=== PATIENT | female | born 1985 | race African-American/Black ===

== ENCOUNTER 2017-01-20 14:02 | Observation (INO) | payer OTHER ==
[~2017-01-20] VITALS: Ht 167.6 cm; Wt 127.3 kg
[~2017-01-20 14:02] MED LIST: HYDR-971 PO
--- NOTE | 2017-01-20 14:06 | PHYS DOC ---
Past Medical History Past Medical History: No Pertinent History Past Surgical History: Other Additional Past Surgical Histo: adenoidectomy Alcohol Use: Rarely Drug Use: None Adult General HPI HPI Patient is a 31 year old female who presents with chest pain. She states it is sharp nonradiating. She denies any nausea vomiting with it. She does complain of shortness of breath. 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 She denies any history of smoking or any other past medical history. She has a family history of early coronary disease. She does not have a primary care physician and has not seen a doctor for many years. He did have a history of smoking but stopped 10 years ago. Review of Systems Review of Systems Constitutional: Denies fever or chills [] Eyes: Denies change in visual acuity, redness, or eye pain [] HENT: Denies nasal congestion or sore throat [] Respiratory: Denies cough, positive for shortness of breath [] Cardiovascular: No additional information not addressed in HPI [] GI: Denies abdominal pain, nausea, vomiting, bloody stools or diarrhea [] : Denies dysuria or hematuria [] Musculoskeletal: Denies back pain or joint pain [] Integument: Denies rash or skin lesions [] Neurologic: Denies headache, focal weakness or sensory changes [] Endocrine: Denies polyuria or polydipsia [] Current Medications Current Medications Current Medications Medications (Trade) Dose Ordered Sig/Kristen Start Time Stop Time Status Last Admin Dose Admin Fentanyl Citrate (Fentanyl 2ml Vial) 50 mcg PRN Q15MIN PRN 01/20/17 14:15 01/21/17 14:14 01/20/17 15:15 50 MCG Morphine Sulfate 4 mg PRN Q2HR PRN 01/20/17 15:45 01/21/17 15:44 Nitroglycerin (Nitrostat) 0.4 mg PRN Q5MIN PRN 01/20/17 14:15 01/21/17 14:14 01/20/17 14:30 0.4 MG Ondansetron HCl (Zofran) 4 mg PRN Q8HRS PRN 01/20/17 15:45 01/21/17 15:44 Allergies Allergies Allergies Coded Allergies Type Severity Reaction Last Updated Verified No Known Drug Allergies 06/14/16 No Physical Exam Physical Exam Constitutional: Well developed, well nourished, no acute distress, non-toxic appearance. [] HENT: Normocephalic, atraumatic, bilateral external ears normal, oropharynx moist, no oral exudates, nose normal. [] Eyes: PERRLA, EOMI, conjunctiva normal, no discharge. [] Neck: Normal range of motion, no tenderness, supple, no stridor. [] Cardiovascular:Heart rate regular rhythm, no murmur [] Lungs & Thorax: Bilateral breath sounds clear to auscultation [] Abdomen: Bowel sounds normal, soft, no tenderness, no masses, no pulsatile masses. [] Skin: Warm, dry, no erythema, no rash. [] Back: No tenderness, no CVA tenderness. [] Extremities: No tenderness, no cyanosis, no clubbing, ROM intact, no edema. [] Neurologic: Alert and oriented X 3, normal motor function, normal sensory function, no focal deficits noted. [] Psychologic: Affect normal, judgement normal, mood normal. [] Current Patient Data Vital Signs Vital Signs Date Time Temp Pulse Resp B/P Pulse Ox O2 Delivery O2 Flow Rate FiO2 01/20/17 14:30 119 189/78 01/20/17 14:10 98.4 24 97 Room Air 98.4 Lab Values Laboratory Tests Test 01/20/17 14:11 01/20/17 14:14 01/20/17 14:20 01/20/17 14:46 POC Troponin I 0.00ng/ml (<0.08) POC Hemoglobin 13.6g/dL (12-15) POC Hematocrit 40% (36-40) POC Sodium 142mmol/L (135-145) POC Potassium 4.0mmol/L (3.5-5.0) POC Chloride 104mmol/L (98-110) POC Total CO2 25mmol/L (23-32) Anion Gap 17mmol/L (6-14) H 9 (6-14) POC Blood Urea Nitrogen 16mg/dL (8-26) POC Creatinine 0.9mg/dL (0.5-1.4) Glucose Level 95mg/dL (70-99) 107mg/dL (70-99) H POC Ionized Calcium (Rakesh) 1.11mmol/L (1.13-1.32) L White Blood Count 7.7x10^3/uL (4.0-11.0) Red Blood Count 4.36x10^6/uL (3.50-5.40) Hemoglobin 12.5g/dL (12.0-15.5) Hematocrit 38.0% (36.0-47.0) Mean Corpuscular Volume 87fL (79-100) Mean Corpuscular Hemoglobin 29pg (25-35) Mean Corpuscular Hemoglobin Concent 33g/dL (31-37) Red Cell Distribution Width 14.1% (11.5-14.5) Platelet Count 411x10^3/uL (140-400) H Neutrophils (%) (Auto) 59% (31-73) Lymphocytes (%) (Auto) 30% (24-48) Monocytes (%) (Auto) 9% (0-9) Eosinophils (%) (Auto) 1% (0-3) Basophils (%) (Auto) 1% (0-3) Neutrophils # (Auto) 4.5x10^3uL (1.8-7.7) Lymphocytes # (Auto) 2.3x10^3/uL (1.0-4.8) Monocytes # (Auto) 0.7x10^3/uL (0.0-1.1) Eosinophils # (Auto) 0.1x10^3/uL (0.0-0.7) Basophils # (Auto) 0.1x10^3/uL (0.0-0.2) Prothrombin Time 13.4SEC (11.7-14.0) Prothrombin Time INR 1.1 (0.8-1.1) D-Dimer (Shira) < 0.27ug/mlFEU (0.00-0.50) Sodium Level 143mmol/L (136-145) Potassium Level 4.0mmol/L (3.5-5.1) Chloride Level 104mmol/L (98-107) Carbon Dioxide Level 30mmol/L (21-32) Blood Urea Nitrogen 16mg/dL (7-20) Creatinine 0.9mg/dL (0.6-1.0) Estimated GFR (Cockcroft-Gault) 87.3 Calcium Level 8.8mg/dL (8.5-10.1) Magnesium Level 1.9mg/dL (1.8-2.4) Total Bilirubin 0.2mg/dL (0.2-1.0) Direct Bilirubin < 0.1mg/dL (0.0-0.2) Aspartate Amino Transferase (AST) 11U/L (15-37) L Alanine Aminotransferase (ALT) 22U/L (14-59) Alkaline Phosphatase 45U/L (46-116) L Creatine Kinase 191U/L (26-192) Creatine Kinase MB (Mass) 1.5ng/mL (0.0-3.6) Creatine Kinase MB Relative Index 0.8% (0-4) Troponin I Quantitative < 0.017ng/mL (0.000-0.055) MC-Hkq-O-Type Natriuretic Peptide 21pg/mL (0-124) Total Protein 7.7g/dL (6.4-8.2) Albumin 3.6g/dL (3.4-5.0) Lipase 180U/L (73-393) Thyroid Stimulating Hormone (TSH) 1.481uIU/mL (0.358-3.74) Laboratory Tests 01/20/17 14:20 Laboratory Tests 01/20/17 14:14 01/20/17 14:46 EKG EKG EKG shows sinus tach at rate of [address] elevations, no T-wave inversions appreciated, normal axis, QTC 413 ms, as interpreted by me. Radiology/Procedures Radiology/Procedures [facility] [address] [place] [address] IMAGING REPORT Signed PATIENT: SARAY GONZALEZ ACCOUNT: [id number] : 1985 LOCATION: ER AGE: 31 SEX: F EXAM STATUS: REG ER ORD. PHYSICIAN: GLADIS MARRERO MD REASON: chest pain PROCEDURE: PORTABLE CHEST 1V Portable chest, 01/20/2017: History: Chest pain Comparison is made to a study from 05/12/2014. The heart size and pulmonary vascularity are normal. The lungs are clear. There is no evidence of pleural fluid. IMPRESSION: No acute cardiopulmonary abnormality is detected. DICTATED and SIGNED BY: CYDNEY LEACH MD DATE: 01/20/17 [id number] CC: GLADIS MARRERO MD; NO PCP ~ Impressions: Chest pain Obesity Course & Med Decision Making Course & Med Decision Making Pertinent Labs and Imaging studies reviewed. (See chart for details) Chest x-ray, EKG and labs are nonacute. Her pain improved to safely with 2 nitroglycerin. Currently pain-free. D-dimer is negative. She is being admitted to the hospitalist for chest pain evaluation. Aspirin has been given. Dragon Disclaimer Dragon Disclaimer This electronic medical record was generated, in whole or in part, using a voice recognition dictation system. Departure Departure Impression: Primary Impression: Chest pain Disposition: ADMITTED INPATIENT Admitting Physician: Rena Howard Condition: STABLE Referrals: NO PCP (PCP) GLADIS MARRERO MD Jan 20, 2017 14:06
[2017-01-20] MEDS: FENTANYL PF 100 MCG/2 ML VIAL. IV PRN ×2 (14:17→15:15)
[2017-01-20] MEDS: NITROGLYCERIN SUBLINGUAL 0.4 MG BOTTLE OF 25. SL PRN ×2 (14:17→14:30)
--- NOTE | 2017-01-20 14:24 | EKG ---
[facility] [address] [place] [address] Test Date: 2017-01-20 Test Time: 14:15:42 Pat Name: SARAY GONZALEZ Department: Room: Gender: F Emblem Maker: : 1985 Requested By: GLADIS MARRERO Order Number: [id number] Reading MD: Measurements Intervals [place] Rate: 100 P: 36 MD: 152 QRS: 34 QRSD: 86 T: 47 QT: 318 QTc: 413 Interpretive Statements SINUS RHYTHM QRS(T) CONTOUR ABNORMALITY CONSIDER ANTEROSEPTAL MYOCARDIAL DAMAGE POSSIBLY ABNORMAL ECG RI6.01 No previous ECG available for comparison
[2017-01-20 14:32] LABS: BASO # 0.1 x10^3/uL (0.0-0.2); BASO % 1 % (0-3); EOS % 1 % (0-3); HEMOGLOBIN 12.5 g/dL (12.0-15.5); LYMPH # 2.3 x10^3/uL (1.0-4.8); LYMPH % 30 % (24-48); MEAN CORPUSCULAR HEMOGLOBIN 29 pg (25-35); MEAN CORPUSCULAR HGB CONC 33 g/dL (31-37); MEAN CORPUSCULAR VOLUME 87 fL (79-100); MONO % 9 % (0-9); NEUT % 59 % (31-73); PLATELET COUNT 411 x10^3/uL (140-400); RED BLOOD COUNT 4.36 x10^6/uL (3.50-5.40); RED CELL DISTRIBUTION WIDTH 14.1 % (11.5-14.5); WHITE BLOOD COUNT 7.7 x10^3/uL (4.0-11.0)
--- NOTE | 2017-01-20 14:46 | RAD ---
Portable chest, 01/20/2017: History: Chest pain Comparison is made to a study from 05/12/2014. The heart size and pulmonary vascularity are normal. The lungs are clear. There is no evidence of pleural fluid. IMPRESSION: No acute cardiopulmonary abnormality is detected.
[2017-01-20 15:23] LABS: ANION GAP 9 (6-14); BLOOD UREA NITROGEN 16 mg/dL (7-20); CALCIUM 8.8 mg/dL (8.5-10.1); CARBON DIOXIDE 30 mmol/L (21-32); CHLORIDE 104 mmol/L (98-107); CREATININE 0.9 mg/dL (0.6-1.0); GFR 87.3; GLUCOSE 107 mg/dL (70-99); SODIUM 143 mmol/L (136-145)
[2017-01-20 15:24] LABS: INR 1.1 (0.8-1.1); PROTHROMBIN TIME PATIENT 13.4 SEC (11.7-14.0)
[2017-01-20 15:30] LABS: ALBUMIN 3.6 g/dL (3.4-5.0); ALK PHOS 45 U/L (46-116); ALT (SGPT) 22 U/L (14-59); AST (SGOT) 11 U/L (15-37); DIRECT BILIRUBIN < 0.1 mg/dL (0.0-0.2); MAGNESIUM 1.9 mg/dL (1.8-2.4); TOTAL BILIRUBIN 0.2 mg/dL (0.2-1.0); TOTAL PROTEIN 7.7 g/dL (6.4-8.2)
[2017-01-20 15:38] LABS: CKMB INDEX 0.8 % (0-4); CKMB MASS 1.5 ng/mL (0.0-3.6)
[2017-01-20] MEDS ORDERED: ONDANSETRON PF 4 MG/2 ML VIAL. IV PRN ×2 (15:45→17:00)
[2017-01-20] MEDS ORDERED: ASPIRIN 325 MG TABLET PO ONE (16:15)
--- NOTE | 2017-01-20 16:17 | ACF ---
Admission Forms Criteria CHEST PAIN Clinical Indications for Admission to Inpatient Care (Place 'X' for any and all applicable criteria): Admission is indicated for chest pain and ANY ONE of the following(1)(2)(3)(4)(5 ): [ ]I. Angina with acute coronary syndrome (Also use Myocardial Infarction or Angina guideline) [X]II. Hemodynamic instability [ ]III. Angina needing acute intervention as indicated by ALL of the following( 11)(12): [ ]a) Unstable angina is present as indicated by angina that is ANY ONE of the following: [ ]i) New onset [ ]ii) Nocturnal [ ]iii) Prolonged at rest [ ]iv) Progressive [ ]b) Angina warrants acute intervention as indicated by ANY ONE of the following: [ ]i) Recurrent angina (e.g, not responding as previously to treatment) [ ]ii) Angina at rest or with low-level activities despite initial medical therapy [ ]iii) New or presumably new ST-segment depression on ECG [ ]iv) Signs or symptoms of heart failure (eg, dyspnea, pulmonary edema) [ ]v) New or worsening mitral regurgitation [ ]vi) Hemodynamic instability [ ]vii) Dangerous arrhythmia (eg, sustained ventricular tachycardia) [ ]viii) History of percutaneous coronary intervention within 6 months [ ]ix) History of coronary artery bypass graft surgery [ ]x) PRETTY risk score of 2 or greater[A] [ ]xi) History of Diabetes(14) [ ]xii) High-risk cardiac ischemia findings on noninvasive testing (e.g, echocardiogram, treadmill testing, nuclear scan) [ ]xiii) Chronic renal insufficiency (ie, estimated GFR less than 60 mL/min/1.732m) [ ]xiv) Left ventricular ejection fraction less than 40% [ ]IV. Evidence of NV (eg, cardiac biomarkers positive, ST-segment elevation on ECG) also use Myocardial Infarction Criteria Form. [ ]V. Pulmonary edema [ ]. Respiratory distress [ ]VII. Chest pain indicative of serious diagnosis other than coronary artery disease (eg, aortic dissection) [ ]VIII. Contraindications and/or Inappropriate clinical situations for Observational Care in patients with Chest Pain, when ANY ONE of the following is required: [ ]a) Patient with risk factor for pulmonary embolism, acute coronary syndrome and myocardial infarction (18) [ ]b) Patient with Pulmonary embolism require an average LOS of 4.3 days, therefore emergency department observation management is inappropriate 18,23 [ ]c) Painful condition/s in the elderly, have the highest rate of recidivism after emergency department observation management (10.8%) 20,21,22 [ ]d) Elevated cardiac biomarker requires intensive and exhaustive care (19) [ ]IX. General contraindications and/or Inappropriate clinical situations for Observational Care in patients with Chest Pain, when ANY ONE of the following is required: [ ]a) Prediction of prolongation of LOS based on ANY ONE of the following may be considered as a contraindication for observational care 2, 3, 4, 5, 6, 7, 8, 9, 10, 11 [ ]i) Age > 65 yrs. [ ]ii) Patient arriving by ambulance [ ]iii) Patient with high acuity [ ]iv) Patient requiring vital sign monitoring [ ]v) Patient on IV medication [ ]b) Systolic blood pressures 180mmHg 3,12 [ ]c) Patient with altered mental status including delirium and other alteration of consciousness, (3) [ ]d) Patient whose discharge disposition will be to a half-way home or rehabilitation home should not be managed in Emergency Department Observation Unit. CMS rule requires 3 days hospital stay before such placement. 3,13 [ ]e) Patient with failure to thrive due to broad array of etiologies 3,16,17 [ ]f) Inability to ambulate 3,14 Extended stay beyond goal length of stay may be needed for (1)(28): [ ]a) Specific condition diagnosed after evaluation (eg, pulmonary embolism, aortic dissection) [ ]b) Unstable angina [ ]c) Continued suspicion of acute coronary syndrome with inability to complete needed cardiac evaluation (eg, patient clinically unable to undergo stress testing) [ ]d) Myocardial infarction (Contents from ANGINA and CHEST PAIN clinical indications for admission to inpatient care have been integrated in this form) The original [facility] content created by [employer] has been revised. The portions of the content which have been revised are identified through the use of italic text or in bold, and [facility] has neither reviewed nor approved the modified material. All other unmodified content is copyright [employer]. Please see references footnoted in the original [facility] edition 2016 Admission Criteria Met?: Yes TALYA PEARCE Jan 20, 2017 16:17
--- NOTE | 2017-01-20 16:56 | PDOC1 ---
History and Physical Date of Admission Date of Admission 01/20/17 Identification/Chief Complaint Chief Complaint chest pain Problems: Source Source: Chart review, Patient History of Present Illness History of Present Illness HPI HPI Patient is a 31 year old female who presents with chest pain today. 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 had sob, wo N/V or diaphoresis. BP is high in ER >200. pt recently has no fever, chills, cough, sob. quit smoking for 10ys. parents had DM, HTN, but aunt and grandmother had AK. Past Medical History Past Medical History none Past Surgical History Past Surgical History: No pertinent history Family History Family History dm, htn, mi Social History Smoke: Quit ALCOHOL: social Drugs: None Current Problem List Problem List Problems Medical Problems: (1) Chest pain Status: Acute Current Medications Current Medications Current Medications Medications (Trade) Dose Ordered Sig/Kristen Start Time Stop Time Status Last Admin Dose Admin Acetaminophen (Tylenol) 650 mg PRN Q6HRS PRN 01/20/17 17:00 UNV Acetaminophen/ Hydrocodone Bitart (Lortab 5/325) 1 tab PRN Q6HRS PRN 01/20/17 17:00 UNV Aspirin (Yrn Aspirin) 325 mg 1X ONCE 01/20/17 16:15 01/20/17 16:16 DC Fentanyl Citrate (Fentanyl 2ml Vial) 50 mcg PRN Q15MIN PRN 01/20/17 14:15 01/21/17 14:14 01/20/17 15:15 50 MCG Morphine Sulfate 4 mg PRN Q2HR PRN 01/20/17 15:45 01/21/17 15:44 Nitroglycerin (Nitrostat) 0.4 mg PRN Q5MIN PRN 01/20/17 14:15 01/21/17 14:14 01/20/17 14:30 0.4 MG Ondansetron HCl (Zofran) 4 mg PRN Q6HRS PRN 01/20/17 17:00 UNV Allergies Allergies Allergies Coded Allergies Type Severity Reaction Last Updated Verified No Known Drug Allergies 06/14/16 No ROS Review of System CONSTITUTIONAL: No fever or chills EYES: No recent changes SKIN: No rash or itching CARDIOVASCULAR: No chest pain, syncope, palpitations, or edema RESPIRATORY: No SOB or cough GASTROINTESTINAL: No nausea, vomiting or abdominal pain NEUROLOGICAL: No headaches or weakness ENDOCRINE: No cold or heat intolerance GENITOURINARY: No urgency or frequency of urination MUSCULOSKELETAL: No back pain or joint pain LYMPHATICS: No enlarged lymph nodes PSYCHIATRIC: No anxiety or depression Physical Exam Physical Exam GEN.: No apparent distress. Alert and oriented. HEENT: Head is normocephalic, atraumatic NECK: Supple. LUNGS: Clear to auscultation. HEART: RRR, S1, S2 present. Peripheral pulses intact ABDOMEN: Soft, nontender. Positive bowel sounds. EXTREMITIES: Without any cyanosis. NEUROLOGIC: Normal speech, normal tone PSYCHIATRIC: Normal affect, normal mood. SKIN: No ulcerations Vitals Vitals Vital Signs Date Time Temp Pulse Resp B/P Pulse Ox O2 Delivery O2 Flow Rate FiO2 01/20/17 14:30 119 189/78 01/20/17 14:10 98.4 24 97 Room Air 98.4 Labs Labs Laboratory Tests Test 01/20/17 14:11 01/20/17 14:14 01/20/17 14:20 01/20/17 14:46 Bedside Troponin I 0.00ng/ml (<0.08) Bedside Hemoglobin 13.6g/dL (12-15) Bedside Hematocrit 40% (36-40) Bedside Sodium 142mmol/L (135-145) Bedside Potassium 4.0mmol/L (3.5-5.0) Bedside Chloride 104mmol/L (98-110) Bedside Total CO2 25mmol/L (23-32) Anion Gap 17mmol/L (6-14) 9 (6-14) Bedside Blood Urea Nitrogen 16mg/dL (8-26) Bedside Creatinine 0.9mg/dL (0.5-1.4) Glucose Level 95mg/dL (70-99) 107mg/dL (70-99) Bedside Ionized Calcium (Rakesh) 1.11mmol/L (1.13-1.32) White Blood Count 7.7x10^3/uL (4.0-11.0) Red Blood Count 4.36x10^6/uL (3.50-5.40) Hemoglobin 12.5g/dL (12.0-15.5) Hematocrit 38.0% (36.0-47.0) Mean Corpuscular Volume 87fL (79-100) Mean Corpuscular Hemoglobin 29pg (25-35) Mean Corpuscular Hemoglobin Concent 33g/dL (31-37) Red Cell Distribution Width 14.1% (11.5-14.5) Platelet Count 411x10^3/uL (140-400) Neutrophils (%) (Auto) 59% (31-73) Lymphocytes (%) (Auto) 30% (24-48) Monocytes (%) (Auto) 9% (0-9) Eosinophils (%) (Auto) 1% (0-3) Basophils (%) (Auto) 1% (0-3) Neutrophils # (Auto) 4.5x10^3uL (1.8-7.7) Lymphocytes # (Auto) 2.3x10^3/uL (1.0-4.8) Monocytes # (Auto) 0.7x10^3/uL (0.0-1.1) Eosinophils # (Auto) 0.1x10^3/uL (0.0-0.7) Basophils # (Auto) 0.1x10^3/uL (0.0-0.2) Prothrombin Time 13.4SEC (11.7-14.0) Prothromb Time International Ratio 1.1 (0.8-1.1) D-Dimer (Shira) < 0.27ug/mlFEU (0.00-0.50) Sodium Level 143mmol/L (136-145) Potassium Level 4.0mmol/L (3.5-5.1) Chloride Level 104mmol/L (98-107) Carbon Dioxide Level 30mmol/L (21-32) Blood Urea Nitrogen 16mg/dL (7-20) Creatinine 0.9mg/dL (0.6-1.0) Estimated GFR (Cockcroft-Gault) 87.3 Calcium Level 8.8mg/dL (8.5-10.1) Magnesium Level 1.9mg/dL (1.8-2.4) Total Bilirubin 0.2mg/dL (0.2-1.0) Direct Bilirubin < 0.1mg/dL (0.0-0.2) Aspartate Amino Transf (AST/SGOT) 11U/L (15-37) Alanine Aminotransferase (ALT/SGPT) 22U/L (14-59) Alkaline Phosphatase 45U/L (46-116) Creatine Kinase 191U/L (26-192) Creatine Kinase MB (Mass) 1.5ng/mL (0.0-3.6) Creatine Kinase MB Relative Index 0.8% (0-4) Troponin I Quantitative < 0.017ng/mL (0.000-0.055) QP-Lif-R-Type Natriuretic Peptide 21pg/mL (0-124) Total Protein 7.7g/dL (6.4-8.2) Albumin 3.6g/dL (3.4-5.0) Lipase 180U/L (73-393) Thyroid Stimulating Hormone (TSH) 1.481uIU/mL (0.358-3.74) Laboratory Tests Test 01/20/17 14:11 01/20/17 14:14 01/20/17 14:20 01/20/17 14:46 Bedside Troponin I 0.00ng/ml (<0.08) Bedside Hemoglobin 13.6g/dL (12-15) Bedside Hematocrit 40% (36-40) Bedside Sodium 142mmol/L (135-145) Bedside Potassium 4.0mmol/L (3.5-5.0) Bedside Chloride 104mmol/L (98-110) Bedside Total CO2 25mmol/L (23-32) Anion Gap 17mmol/L (6-14) 9 (6-14) Bedside Blood Urea Nitrogen 16mg/dL (8-26) Bedside Creatinine 0.9mg/dL (0.5-1.4) Glucose Level 95mg/dL (70-99) 107mg/dL (70-99) Bedside Ionized Calcium (Rakesh) 1.11mmol/L (1.13-1.32) White Blood Count 7.7x10^3/uL (4.0-11.0) Red Blood Count 4.36x10^6/uL (3.50-5.40) Hemoglobin 12.5g/dL (12.0-15.5) Hematocrit 38.0% (36.0-47.0) Mean Corpuscular Volume 87fL (79-100) Mean Corpuscular Hemoglobin 29pg (25-35) Mean Corpuscular Hemoglobin Concent 33g/dL (31-37) Red Cell Distribution Width 14.1% (11.5-14.5) Platelet Count 411x10^3/uL (140-400) Neutrophils (%) (Auto) 59% (31-73) Lymphocytes (%) (Auto) 30% (24-48) Monocytes (%) (Auto) 9% (0-9) Eosinophils (%) (Auto) 1% (0-3) Basophils (%) (Auto) 1% (0-3) Neutrophils # (Auto) 4.5x10^3uL (1.8-7.7) Lymphocytes # (Auto) 2.3x10^3/uL (1.0-4.8) Monocytes # (Auto) 0.7x10^3/uL (0.0-1.1) Eosinophils # (Auto) 0.1x10^3/uL (0.0-0.7) Basophils # (Auto) 0.1x10^3/uL (0.0-0.2) Prothrombin Time 13.4SEC (11.7-14.0) Prothromb Time International Ratio 1.1 (0.8-1.1) D-Dimer (Shira) < 0.27ug/mlFEU (0.00-0.50) Sodium Level 143mmol/L (136-145) Potassium Level 4.0mmol/L (3.5-5.1) Chloride Level 104mmol/L (98-107) Carbon Dioxide Level 30mmol/L (21-32) Blood Urea Nitrogen 16mg/dL (7-20) Creatinine 0.9mg/dL (0.6-1.0) Estimated GFR (Cockcroft-Gault) 87.3 Calcium Level 8.8mg/dL (8.5-10.1) Magnesium Level 1.9mg/dL (1.8-2.4) Total Bilirubin 0.2mg/dL (0.2-1.0) Direct Bilirubin < 0.1mg/dL (0.0-0.2) Aspartate Amino Transf (AST/SGOT) 11U/L (15-37) Alanine Aminotransferase (ALT/SGPT) 22U/L (14-59) Alkaline Phosphatase 45U/L (46-116) Creatine Kinase 191U/L (26-192) Creatine Kinase MB (Mass) 1.5ng/mL (0.0-3.6) Creatine Kinase MB Relative Index 0.8% (0-4) Troponin I Quantitative < 0.017ng/mL (0.000-0.055) UI-Zvy-T-Type Natriuretic Peptide 21pg/mL (0-124) Total Protein 7.7g/dL (6.4-8.2) Albumin 3.6g/dL (3.4-5.0) Lipase 180U/L (73-393) Thyroid Stimulating Hormone (TSH) 1.481uIU/mL (0.358-3.74) VTE Prophylaxis Ordered VTE Prophylaxis Devices: Yes VTE Pharmacological Prophylaxi: Yes Assessment/Plan Assessment/Plan 1. chest pain, could 2/2 HTN, need to rule out AK 2. HTN new onset 3. obesity 4. previous smoker plan: 1. fu with card 2. check echo, tsh, lipid panel, Cycle CE 3. EKG cannot opened, as per ERP, it is ok 4. add lisinopirl 20mg daily for now asa x1 in ER. dvt ppx JORDIN BECK MD Jan 20, 2017 16:56
[2017-01-20] MEDS ORDERED: ACETAMINOPHEN 325 MG TABLET. PO PRN (17:00)
[2017-01-20] MEDS ORDERED: hydrALAZINE 20 MG/ML VIAL. IVP PRN (17:00)
[2017-01-20] MEDS ORDERED: ENOXAPARIN 40 MG/0.4 ML DISP.SYRIN. SQ SCH (17:00)
[2017-01-20 17:17] LABS: BILIRUBIN,URINE NEGATIVE (NEG); GLUCOSE,URINE NEGATIVE (NEG); NITRITE,URINE NEGATIVE (NEG); PROTEIN,URINE NEGATIVE (NEG-TRACE); UROBILINOGEN,URINE 0.2 mg/dL (0.2 mg/dL)
[2017-01-20 17:21] LABS: BARBITURATES NEG (NEG); BENZODIAZEPINES NEG (NEG); CANNABINOIDS NEG (NEG); COCAINE NEG (NEG); METHADONE NEG (NEG); OPIATES NEG (NEG); PHENCYCLIDINE NEG (NEG)
[2017-01-20 17:25] LABS: ETHANOL, URINE NEG (NEG)
[2017-01-20 17:30] LABS: BACTERIA,URINE MODERATE /HPF (0-FEW); RBC,URINE OCC /HPF (0-2); SQUAMOUS EPITHELIAL CELL,UR MOD /LPF; WBC,URINE OCC /HPF (0-4)
[2017-01-20] MEDS: LISINOPRIL 10 MG TABLET PO SCH (18:26)
[2017-01-20] MEDS: HYDROCODONE/APAP 5/325MG TABLET. PO PRN (18:26)
[2017-01-20 19:00] VITALS: BP 114/84
--- NOTE | 2017-01-20 19:28 | PDOC2 ---
CARDIOLOGY CONSULT NOTE CHEIF COMPLAINT: Chest pain Problems: HPI: Patient is a pleasant 31-year-old woman without any significant past medical history who presents to the hospital in the setting of sudden onset of chest pain. She usually works as a transporter through [employer] and earlier today after transporting somebody she felt some sharp left-sided pains which caused her some lightheadedness and also some dyspnea this prompted evaluation in the emergency department. Her evaluation in the ER revealed severely elevated blood pressures and whether this was the cause or secondary to her pain it is unclear. Ultimately, nitroglycerin and fentanyl resolved her pain. At this present time she reports pleuritic type pain with difficulty taking a deep breath. Otherwise she denies any headaches. She's never had any prior cardiovascular disease. She is an active individual. PMHX: No significant past medical history. SOCHX: Remote history of tobacco use. Denies any alcohol or illicit drug use. FAMHX: Note for early arthroscopic heart disease in her family but no sudden cardiac . CURRENT MEDS: Current Medications Medications (Trade) Dose Ordered Sig/Kristen Start Time Stop Time Status Last Admin Dose Admin Acetaminophen (Tylenol) 650 mg PRN Q6HRS PRN 01/20/17 17:00 Acetaminophen/ Hydrocodone Bitart (Lortab 5/325) 1 tab PRN Q6HRS PRN 01/20/17 17:00 01/20/17 18:26 1 TAB Aspirin (Yrn Aspirin) 325 mg 1X ONCE 01/20/17 16:15 01/20/17 16:16 DC 01/20/17 17:21 325 MG Enoxaparin Sodium (Lovenox 40mg Syringe) 40 mg Q24H 01/20/17 17:00 01/20/17 18:25 40 MG Fentanyl Citrate (Fentanyl 2ml Vial) 50 mcg PRN Q15MIN PRN 01/20/17 14:15 01/21/17 14:14 01/20/17 15:15 50 MCG Hydralazine HCl (Apresoline) 10 mg PRN Q6HRS PRN 01/20/17 17:00 Lisinopril (Prinivil) 20 mg DAILY 01/20/17 17:00 01/20/17 18:26 20 MG Morphine Sulfate 4 mg PRN Q2HR PRN 01/20/17 15:45 01/21/17 15:44 Nitroglycerin (Nitrostat) 0.4 mg PRN Q5MIN PRN 01/20/17 14:15 01/21/17 14:14 01/20/17 14:30 0.4 MG Ondansetron HCl (Zofran) 4 mg PRN Q6HRS PRN 01/20/17 17:00 ALLERGIES: Allergies Coded Allergies Type Severity Reaction Last Updated Verified No Known Drug Allergies 06/14/16 No ROS: Negative for 10 out of 14 systems reviewed unless otherwise mentioned above in history of present illness. PHYSICAL EXAM: Vital Signs: Vital Signs Date Time Temp Pulse Resp B/P Pulse Ox O2 Delivery O2 Flow Rate FiO2 01/20/17 18:48 Room Air 01/20/17 18:26 74 135/67 01/20/17 18:26 2.0 01/20/17 17:03 18 100 01/20/17 14:10 98.4 98.4 Physical Exam: The patient appeared well nourished and normally developed. Head exam is unremarkable. No scleral icterus or corneal arcus noted. Neck is without jugular venous distension, thyromegaly, or carotid bruits. Carotid upstrokes are brisk bilaterally. Lungs are clear to auscultation and percussion. Cardiac exam reveals the PMI to be normally sized and situated. Rhythm is regular. First and second heart sounds normal. No murmurs, rubs or gallops. Abdominal exam reveals normal bowel sounds, no masses, no organomegaly and no aortic enlargement. Extremities are nonedematous and both femoral and pedal pulses are normal. Msk: No traumua Neuro: No focal deficits DIAGNOSTIC TESTING: Cardiac enzymes negative. Chest x-ray unremarkable. Urine toxicology negative. EKG unremarkable. Lab Laboratory Tests Test 01/20/17 14:11 01/20/17 14:14 01/20/17 14:20 01/20/17 14:46 Bedside Troponin I 0.00ng/ml (<0.08) Bedside Hemoglobin 13.6g/dL (12-15) Bedside Hematocrit 40% (36-40) Bedside Sodium 142mmol/L (135-145) Bedside Potassium 4.0mmol/L (3.5-5.0) Bedside Chloride 104mmol/L (98-110) Bedside Total CO2 25mmol/L (23-32) Anion Gap 17mmol/L (6-14) H 9 (6-14) Bedside Blood Urea Nitrogen 16mg/dL (8-26) Bedside Creatinine 0.9mg/dL (0.5-1.4) Glucose Level 95mg/dL (70-99) 107mg/dL (70-99) H Bedside Ionized Calcium (Rakesh) 1.11mmol/L (1.13-1.32) L White Blood Count 7.7x10^3/uL (4.0-11.0) Red Blood Count 4.36x10^6/uL (3.50-5.40) Hemoglobin 12.5g/dL (12.0-15.5) Hematocrit 38.0% (36.0-47.0) Mean Corpuscular Volume 87fL (79-100) Mean Corpuscular Hemoglobin 29pg (25-35) Mean Corpuscular Hemoglobin Concent 33g/dL (31-37) Red Cell Distribution Width 14.1% (11.5-14.5) Platelet Count 411x10^3/uL (140-400) H Neutrophils (%) (Auto) 59% (31-73) Lymphocytes (%) (Auto) 30% (24-48) Monocytes (%) (Auto) 9% (0-9) Eosinophils (%) (Auto) 1% (0-3) Basophils (%) (Auto) 1% (0-3) Neutrophils # (Auto) 4.5x10^3uL (1.8-7.7) Lymphocytes # (Auto) 2.3x10^3/uL (1.0-4.8) Monocytes # (Auto) 0.7x10^3/uL (0.0-1.1) Eosinophils # (Auto) 0.1x10^3/uL (0.0-0.7) Basophils # (Auto) 0.1x10^3/uL (0.0-0.2) Prothrombin Time 13.4SEC (11.7-14.0) Prothromb Time International Ratio 1.1 (0.8-1.1) D-Dimer (Shira) < 0.27ug/mlFEU (0.00-0.50) Sodium Level 143mmol/L (136-145) Potassium Level 4.0mmol/L (3.5-5.1) Chloride Level 104mmol/L (98-107) Carbon Dioxide Level 30mmol/L (21-32) Blood Urea Nitrogen 16mg/dL (7-20) Creatinine 0.9mg/dL (0.6-1.0) Estimated GFR (Cockcroft-Gault) 87.3 Calcium Level 8.8mg/dL (8.5-10.1) Total Bilirubin 0.2mg/dL (0.2-1.0) Direct Bilirubin < 0.1mg/dL (0.0-0.2) Aspartate Amino Transf (AST/SGOT) 11U/L (15-37) L Alkaline Phosphatase 45U/L (46-116) L Creatine Kinase 191U/L (26-192) Creatine Kinase MB (Mass) 1.5ng/mL (0.0-3.6) Creatine Kinase MB Relative Index 0.8% (0-4) Total Protein 7.7g/dL (6.4-8.2) Albumin 3.6g/dL (3.4-5.0) Lipase 180U/L (73-393) Thyroid Stimulating Hormone (TSH) 1.481uIU/mL (0.358-3.74) Test 01/20/17 17:00 Urine Collection Type Unknown Urine Color Yellow Urine Clarity Clear Urine pH 7.0 Urine Specific [place] 1.025 Urine Protein Negativemg/dL (NEG-TRACE) Urine Glucose (UA) Negativemg/dL (NEG) Urine Ketones (Stick) Negativemg/dL (NEG) Urine Blood Negative (NEG) Urine Nitrite Negative (NEG) Urine Bilirubin Negative (NEG) Urine Urobilinogen Dipstick 0.2mg/dL (0.2 mg/dL) Urine Leukocyte Esterase Negative (NEG) Urine RBC Occ/HPF (0-2) Urine WBC Occ/HPF (0-4) Urine Squamous Epithelial Cells Mod/LPF Urine Bacteria Moderate/HPF (0-FEW) Urine Mucus Mod/LPF Urine Opiates Screen Neg (NEG) Urine Methadone Screen Neg (NEG) Urine Barbiturates Neg (NEG) Urine Phencyclidine Screen Neg (NEG) Urine Amphetamine/Methamphetamine Neg (NEG) Urine Benzodiazepines Screen Neg (NEG) Urine Cocaine Screen Neg (NEG) Urine Cannabinoids Screen Neg (NEG) Urine Ethyl Alcohol Neg (NEG) ASSESSMENT: 1. Pleuritic chest pain, etiology unclear. Given the sudden nature it does not appear to be cardiac. She has muscular skeletal and pleuritic components to this. No obvious anginal symptoms prior to presentation. Her d-dimer is negative making pulmonary embolus rare. 2. Malignant HTN PLAN: -Check echo in a.m. -Will likely plan for treadmill MPI tomorrow. -Agree with lisinopril for BP -Toradol prn for pain control. -Will f/u in a.m. SCOTTY JORDAN MD Jan 20, 2017 19:28
[2017-01-20] MEDS: MORPHINE SULFATE 4 MG/ML DISP.SYRIN. IV PRN (21:53)
[2017-01-20 23:00] VITALS: BP 112/52
[2017-01-21] MEDS: HYDROCODONE/APAP 5/325MG TABLET. PO PRN (02:43)
[2017-01-21 03:00] VITALS: BP 128/80
[2017-01-21 03:49] LABS: BASO % 0 % (0-3); EOS % 1 % (0-3); HEMATOCRIT 34.1 % (36.0-47.0); HEMOGLOBIN 11.1 g/dL (12.0-15.5); LYMPH # 1.8 x10^3/uL (1.0-4.8); LYMPH % 35 % (24-48); MEAN CORPUSCULAR HEMOGLOBIN 29 pg (25-35); MEAN CORPUSCULAR HGB CONC 33 g/dL (31-37); MEAN CORPUSCULAR VOLUME 87 fL (79-100); MONO % 12 % (0-9); NEUT % 51 % (31-73); PLATELET COUNT 208 x10^3/uL (140-400); RED BLOOD COUNT 3.92 x10^6/uL (3.50-5.40); RED CELL DISTRIBUTION WIDTH 13.9 % (11.5-14.5); WHITE BLOOD COUNT 5.2 x10^3/uL (4.0-11.0)
[2017-01-21 04:04] LABS: CALCIUM 8.5 mg/dL (8.5-10.1); CREATININE 0.8 mg/dL (0.6-1.0); POTASSIUM 3.9 mmol/L (3.5-5.1)
[2017-01-21 04:09] LABS: CHOLESTEROL/HDL RATIO 3.1
[2017-01-21 07:00] VITALS: BP 121/68
[2017-01-21] MEDS: MORPHINE SULFATE 4 MG/ML DISP.SYRIN. IV PRN (07:56)
[2017-01-21] MEDS ORDERED: LISINOPRIL 10 MG TABLET PO SCH (09:00)
[2017-01-21] MEDS: LISINOPRIL 10 MG TABLET PO SCH (10:50)
--- NOTE | 2017-01-21 11:01 | CARD ---
APPROVED REPORT EXAM: Two-dimensional and M-mode echocardiogram with Doppler and color Doppler. Other Information Quality : Average Rhythm : NSR INDICATION Chest Pain 2D DIMENSIONS RVDd2.8 (2.9-3.5cm)Left Atrium(2D)4.0 (1.6-4.0cm) IVSd0.9 (0.7-1.1cm)Aortic Root(2D)2.3 (2.0-3.7cm) LVDd5.1 (3.9-5.9cm)LVOT Diameter2.1 (1.8-2.4cm) PWd0.9 (0.7-1.1cm)LVDs3.2 (2.5-4.0cm) FS (%) 33.4 %SV83.8 ml LVEF(%)63.1 (>50%) Aortic Valve AoV Peak Tim[place]o.130.6cm/sAoV VTI29.1cm AO Peak GR.6.8mmHgLVOT Peak [place]o.97.4cm/s LVOT VTI 22.69cmAO Mean GR.4mmHg NOY (VMAX)2.20py1FKJ (VTI)2.79cm2 Mitral Valve MV E Eikycfav448.4cm/sMV DECEL JNQY192kk MV A Ovwwlcnf75.0cm/sMV E Mean Gr.2mmHg MV RVR65gqB/A Ratio3.4 MV A Dxrgvmxh830esTED (PHT)4.26cm2 TDI E/Lateral E'5.4E/Medial E'9.1 Pulmonary Valve PV Peak Djwmggwc119.1cm/sPV Peak Grad.4mmHg RVOT VTI20.4cm Tricuspid Valve TR P. Dghflnwb438du/sRAP FMWSPDCS9wwXr TR Peak Gr.53viQuFPES08wiGc Pulmonary Vein S1 Xdqjpbrw60.8cm/sD2 Qtsbrdeb90.3cm/s LEFT VENTRICLE The left ventricle is normal size. There is normal left ventricular wall thickness. Left ventricle sy stolic function is normal. The Ejection Fraction is 60-65%. There is normal LV segmental wall motion. The left ventricular diastolic function and filling is normal for age. RIGHT VENTRICLE The right ventricle is normal size. The right ventricular systolic function is normal. ATRIA The left atrium size is normal. The right atrium size is normal. The interatrial septum is intact wit h no evidence for an atrial septal defect or patent foramen ovale as noted on 2-D or Doppler imaging. AORTIC VALVE The aortic valve is normal in structure and function. The aortic valve is trileaflet. Doppler and Col or Flow revealed no significant aortic regurgitation. There is no significant aortic valvular stenosi s. MITRAL VALVE The mitral valve is normal in structure and function. There is no mitral valve stenosis. Doppler and Color Flow revealed trace mitral regurgitation. TRICUSPID VALVE The tricuspid valve is normal in structure and function. Doppler and Color Flow revealed trace to mil d tricuspid regurgitation. The PA pressure was estimated at 26 mmHg. There is no tricuspid valve sten osis. PULMONIC VALVE The pulmonic valve is not well visualized. Doppler and Color Flow revealed no pulmonic valvular regur gitation. There is no pulmonic valvular stenosis. GREAT VESSELS The aortic root is normal in size. Normal pulmonary venous flow (Doppler). The IVC is normal in size and collapses >50% with inspiration. PERICARDIAL EFFUSION There is no evidence of significant pericardial effusion. Critical Notification Critical Value: No <Conclusion> Left ventricle systolic function is normal. The Ejection Fraction is 60-65%. There is normal LV segmental wall motion.
--- NOTE | 2017-01-21 11:03 | PDOC ---
SAHILSHARLENE Raquel VEGETABLE PICKER 01/21/17 1103: CARDIO Progress Notes Date and Time Date of Service 01/21/2017 Time of Evaluation 1055 Subjective Subjective: Other (continued intermittent left upper chest pain) Vitals Vitals Vital Signs Date Time Temp Pulse Resp B/P Pulse Ox O2 Delivery O2 Flow Rate FiO2 01/21/17 10:50 64 105/41 01/21/17 08:26 20 100 Room Air 01/21/17 07:56 2.0 01/21/17 07:00 99.1 99.1 Weight Weight [ ] Input and Output Intake and Output Intake and Output 01/21/17 07:00 Intake Total 600 ml Balance 600 ml Intake Oral 600 ml # Voids 2 Laboratory Labs Laboratory Tests Test 01/20/17 14:11 01/20/17 14:14 01/20/17 14:20 01/20/17 14:46 Bedside Troponin I 0.00ng/ml (<0.08) Bedside Hemoglobin 13.6g/dL (12-15) Bedside Hematocrit 40% (36-40) Bedside Sodium 142mmol/L (135-145) Bedside Potassium 4.0mmol/L (3.5-5.0) Bedside Chloride 104mmol/L (98-110) Bedside Total CO2 25mmol/L (23-32) Anion Gap 17mmol/L (6-14) 9 (6-14) Bedside Blood Urea Nitrogen 16mg/dL (8-26) Bedside Creatinine 0.9mg/dL (0.5-1.4) Glucose Level 95mg/dL (70-99) 107mg/dL (70-99) Bedside Ionized Calcium (Rakesh) 1.11mmol/L (1.13-1.32) White Blood Count 7.7x10^3/uL (4.0-11.0) Red Blood Count 4.36x10^6/uL (3.50-5.40) Hemoglobin 12.5g/dL (12.0-15.5) Hematocrit 38.0% (36.0-47.0) Mean Corpuscular Volume 87fL (79-100) Mean Corpuscular Hemoglobin 29pg (25-35) Mean Corpuscular Hemoglobin Concent 33g/dL (31-37) Red Cell Distribution Width 14.1% (11.5-14.5) Platelet Count 411x10^3/uL (140-400) Neutrophils (%) (Auto) 59% (31-73) Lymphocytes (%) (Auto) 30% (24-48) Monocytes (%) (Auto) 9% (0-9) Eosinophils (%) (Auto) 1% (0-3) Basophils (%) (Auto) 1% (0-3) Neutrophils # (Auto) 4.5x10^3uL (1.8-7.7) Lymphocytes # (Auto) 2.3x10^3/uL (1.0-4.8) Monocytes # (Auto) 0.7x10^3/uL (0.0-1.1) Eosinophils # (Auto) 0.1x10^3/uL (0.0-0.7) Basophils # (Auto) 0.1x10^3/uL (0.0-0.2) Prothrombin Time 13.4SEC (11.7-14.0) Prothromb Time International Ratio 1.1 (0.8-1.1) D-Dimer (Shira) < 0.27ug/mlFEU (0.00-0.50) Sodium Level 143mmol/L (136-145) Potassium Level 4.0mmol/L (3.5-5.1) Chloride Level 104mmol/L (98-107) Carbon Dioxide Level 30mmol/L (21-32) Blood Urea Nitrogen 16mg/dL (7-20) Creatinine 0.9mg/dL (0.6-1.0) Estimated GFR (Cockcroft-Gault) 87.3 Calcium Level 8.8mg/dL (8.5-10.1) Magnesium Level 1.9mg/dL (1.8-2.4) Total Bilirubin 0.2mg/dL (0.2-1.0) Direct Bilirubin < 0.1mg/dL (0.0-0.2) Aspartate Amino Transf (AST/SGOT) 11U/L (15-37) Alanine Aminotransferase (ALT/SGPT) 22U/L (14-59) Alkaline Phosphatase 45U/L (46-116) Creatine Kinase 191U/L (26-192) Creatine Kinase MB (Mass) 1.5ng/mL (0.0-3.6) Creatine Kinase MB Relative Index 0.8% (0-4) Troponin I Quantitative < 0.017ng/mL (0.000-0.055) NR-Igi-D-Type Natriuretic Peptide 21pg/mL (0-124) Total Protein 7.7g/dL (6.4-8.2) Albumin 3.6g/dL (3.4-5.0) Lipase 180U/L (73-393) Thyroid Stimulating Hormone (TSH) 1.481uIU/mL (0.358-3.74) Test 01/20/17 17:00 01/20/17 22:00 01/21/17 03:22 Urine Collection Type Unknown Urine Color Yellow Urine Clarity Clear Urine pH 7.0 Urine Specific [place] 1.025 Urine Protein Negativemg/dL (NEG-TRACE) Urine Glucose (UA) Negativemg/dL (NEG) Urine Ketones (Stick) Negativemg/dL (NEG) Urine Blood Negative (NEG) Urine Nitrite Negative (NEG) Urine Bilirubin Negative (NEG) Urine Urobilinogen Dipstick 0.2mg/dL (0.2 mg/dL) Urine Leukocyte Esterase Negative (NEG) Urine RBC Occ/HPF (0-2) Urine WBC Occ/HPF (0-4) Urine Squamous Epithelial Cells Mod/LPF Urine Bacteria Moderate/HPF (0-FEW) Urine Mucus Mod/LPF Urine Opiates Screen Neg (NEG) Urine Methadone Screen Neg (NEG) Urine Barbiturates Neg (NEG) Urine Phencyclidine Screen Neg (NEG) Urine Amphetamine/Methamphetamine Neg (NEG) Urine Benzodiazepines Screen Neg (NEG) Urine Cocaine Screen Neg (NEG) Urine Cannabinoids Screen Neg (NEG) Urine Ethyl Alcohol Neg (NEG) Troponin I Quantitative < 0.017ng/mL (0.000-0.055) < 0.017ng/mL (0.000-0.055) White Blood Count 5.2x10^3/uL (4.0-11.0) Red Blood Count 3.92x10^6/uL (3.50-5.40) Hemoglobin 11.1g/dL (12.0-15.5) Hematocrit 34.1% (36.0-47.0) Mean Corpuscular Volume 87fL (79-100) Mean Corpuscular Hemoglobin 29pg (25-35) Mean Corpuscular Hemoglobin Concent 33g/dL (31-37) Red Cell Distribution Width 13.9% (11.5-14.5) Platelet Count 208x10^3/uL (140-400) Neutrophils (%) (Auto) 51% (31-73) Lymphocytes (%) (Auto) 35% (24-48) Monocytes (%) (Auto) 12% (0-9) Eosinophils (%) (Auto) 1% (0-3) Basophils (%) (Auto) 0% (0-3) Neutrophils # (Auto) 2.6x10^3uL (1.8-7.7) Lymphocytes # (Auto) 1.8x10^3/uL (1.0-4.8) Monocytes # (Auto) 0.6x10^3/uL (0.0-1.1) Eosinophils # (Auto) 0.1x10^3/uL (0.0-0.7) Basophils # (Auto) 0.0x10^3/uL (0.0-0.2) Sodium Level 141mmol/L (136-145) Potassium Level 3.9mmol/L (3.5-5.1) Chloride Level 107mmol/L (98-107) Carbon Dioxide Level 27mmol/L (21-32) Anion Gap 7 (6-14) Blood Urea Nitrogen 14mg/dL (7-20) Creatinine 0.8mg/dL (0.6-1.0) Estimated GFR (Cockcroft-Gault) 100.0 Glucose Level 99mg/dL (70-99) Calcium Level 8.5mg/dL (8.5-10.1) Triglycerides Level 55mg/dL (0-150) Cholesterol Level 118mg/dL (0-200) LDL Cholesterol, Calculated 69mg/dL (0-100) VLDL Cholesterol, Calculated 11mg/dL (0-40) HDL Cholesterol 38mg/dL (40-60) Cholesterol/HDL Ratio 3.1 Physical Exam HEENT: Neck Supple W Full Motion Chest: Symmetric LUNGS: Clear to Auscultation Heart: S1S2, RRR, no murmurs Extremities: No Edema Neurology: alert, oriented, follow commands Assessment Assessment 1. malignant HTN now controlled with medications echo pending to evaluate LVEF and assess for WMA 2. persistent chest pain pleuritic serial troponin levels not consistent with AMI TSH normal; LDLs = 69 and no indication to start statin therapy exercise treadmill today If echo and treadmill without significant findings and BP remains controlled - possible discharge later today SCOTTY JORDAN MD 01/21/17 1534: CARDIO Progress Notes Plan Plan Patient seen and examined. Agree with above nurse practitioner note. Continues to have pleuritic chest pain. Echocardiogram and treadmill EKG are unremarkable. Noncardiac pathology at this time. Supportive care with pain control and blood pressure is better controlled on current regimen. Thank you for this consultation and we will follow along peripherally. SHARLENE BAXTER APRN Jan 21, 2017 11:03 SCOTTY JORDAN MD Jan 21, 2017 15:34
[2017-01-21 11:20] VITALS: BP 105/41
[2017-01-21] MEDS ORDERED: ENOXAPARIN 40 MG/0.4 ML DISP.SYRIN. SQ SCH (12:00)
[2017-01-21 15:17] VITALS: BP 103/49
--- NOTE | 2017-01-21 15:34 | RAD ---
APPROVED REPORT Cardiovascular exercise stress testing was performed with EKG only. Patient's initial blood pressure was 131/74 with a heart rate of 72. Resting EKG revealed normal sinus rhythm without any significant ischemic findings. Patient exercised on a Adi protocol to stage II and achieved 7 metabolic equivalents. Stress EKG did not reveal any significant ischemic findings. Appropriate blood pressure rise with str ess. Overall, lower exercise capacity but no obvious ischemia at the level of stress achieved.
[2017-01-21] MEDS ORDERED: AMLO2.5T2 PO (15:39)
== END 2017-01-21 17:45 | disposition home or self-care (01) ==
LOC: ER 14:02 → 5 NORTH 15:30
PROVIDERS: ADMIT Internal Medicine; ATTEND Internal Medicine
DX: R07.89 Other chest pain (principal); I10 Essential (primary) hypertension; E66.9 Obesity, unspecified; Z87.891 Personal history of nicotine dependence; Z83.3 Family history of diabetes mellitus; Z82.49 Family history of ischemic heart disease and other diseases of the circulatory system
CPT/HCPCS: 36415; 71010; 80047; 80048; 80061; 80076; 81001; 82553; 83690; 83735; 83880; 84443; 84484; 85027; 85379; 85610; 87086; 93005; 93017; 93306; 96372; 96374; 96375; 96376; 99285; G0378; G0481; J1650; J2270; J2405; J3010; G0379

== ENCOUNTER → 2017-03-16 | Outpatient (CLI) | payer OTHER ==
[~2017-03-16] MED LIST changes: +AMLO2.5T2 PO; +ZOLPIDEM 5 MG TABLET. PO ONE
--- NOTE | 2017-03-17 18:30 | SLEEP ---
DATE OF STUDY: 03/16/2017 ATTENDING PHYSICIAN: Dr. Farias. HISTORY OF PRESENT ILLNESS: The patient is a 32-year-old, who weighs 379 pounds with a BMI of 45. [place] score was 7. Sleep study was performed at [facility]. During the night study, the patient spent 419 minutes in bed and slept for and 310 minutes with a sleep efficiency of 85%. Sleep latency was 85 minutes with a REM latency of 133 minutes. Overall, sleep architecture showed increased stage I and stage II sleep, normal slow wave and normal REM sleep. During the night study, the patient had 2 obstructive apneas, no mixed or central apneas. There were 26 hypopneas. The patient's apnea-hypopnea index was 5 per hour, supine index 7 per hour and REM index of 24 per hour. Review of nocturnal oximetry study revealed a mean oxygen saturation of 99% with the lowest of 80%. 2.3% of time oxygen saturation remained between 80% and 89% and was predominant during REM sleep. PLMS were seen at index of 1 per hour and none caused EEG arousals. EKG monitoring revealed average heart rate of 78 beats per minute with normal sinus rhythm. No sustained arrhythmias were observed. Due to low AHI, the patient did not met the split night criteria for CPAP initiation. IMPRESSION: 1. Mild sleep apnea-hypopnea syndrome at an AHI of 5 per hour. 2. No clinically significant nocturnal hypoxia. 3. No clinically significant PLMS. RECOMMENDATIONS: 1. The patient did not met the split night criteria for CPAP initiation due to low AHI of 5 per hour. 2. I will recommend the patient's mild sleep apnea should be treated first with weight loss. 3. If patient continues to have hypersomnia and then other treatment options would include either a trial of CPAP or use of an oral appliance as recommended by the dentist. 4. Avoid [employer] depressants. 5. Caution regarding driving until symptoms of sleep apnea resolve with the above recommendations. CAROLINE BEY MD DR: SHAYAN/tosin JOB#: [id number] / [id number] SCOTTY Man MD
== END | disposition home or self-care (01) ==
LOC: SLPLAB 17:23
PROVIDERS: ATTEND Internal Medicine Cardiovascular Disease
DX: G47.33 Obstructive sleep apnea (adult) (pediatric) (principal)
CPT/HCPCS: 95810

== ENCOUNTER 2017-11-16 08:38 | Emergency (ER) | payer SELFPAY, OTHER ==
[2017-11-16] MEDS: IBUPROFEN 800 MG TABLET. PO (09:04)
[2017-11-16 09:34] LABS: NEGATIVE OBC STREP NEG; POSITIVE OBC STREP POS
[2017-11-16 09:51] LABS: INFLUENZA A PATIENT NEGATIVE (NEGATIVE); INFLUENZA B PATIENT NEGATIVE (NEGATIVE); OBC FLU VALID
== END 2017-11-16 10:12 | disposition home or self-care (01) ==
LOC: ER 08:38
DX: J01.00 Acute maxillary sinusitis, unspecified (principal); J01.10 Acute frontal sinusitis, unspecified; R19.7 Diarrhea, unspecified
CPT/HCPCS: 87070; 87804; 87804-59; 87880; 99284

== ENCOUNTER 2018-09-26 23:44 | Emergency (ER) | payer OTHER ==
[~2018-09-26] VITALS: Ht 167.6 cm; Wt 124.7 kg
[2018-09-26 23:44] VITALS: BP 159/93
[~2018-09-26 23:44] MED LIST changes: +AMOX1TAB61 PO; +HYDR-3164 PO; -HYDR-971 PO; -ZOLPIDEM 5 MG TABLET. PO ONE
--- NOTE | 2018-09-27 00:18 | PHYS DOC ---
Past Medical History Past Medical History: Anxiety Additional Past Medical Histor: SHOULDER DISLOCATIONS Past Surgical History: Other Additional Past Surgical Histo: adenoidectomy Alcohol Use: Occasionally Drug Use: None Social History Narrative: HX OF MARIJUANA USE Adult General Chief Complaint Chief Complaint: SHOULDER INJURY HPI HPI 33-year-old female presents to ER via POV with complaints of left upper arm pain. Patient reports she woke from her sleep and felt a pop in her left upper arm and had concerns of dislocated left shoulder as she has had previous episodes of this. Patient denies any numbness or tingling. Patient denies any known injury or recent trauma to left upper extremity. Patient reports she had taken 2 Aleve earlier for menstrual cramps. She denies any left elbow, wrist, or hand pain. Review of Systems Review of Systems Constitutional: Denies weakness/fatigue Respiratory: Denies shortness of breath [] Cardiovascular: Denies CP GI: Denies nausea, vomiting Musculoskeletal: Denies back/neck pain. Reports lt upper arm pain- denies lt elbow/wrist/hand pain or swelling in extremity Integument: Denies rash, swelling or skin lesions [] Neurologic: Denies headache, numbness/tingling All other systems were reviewed and found to be within normal limits, except as documented in this note. Allergies Allergies Allergies Coded Allergies Type Severity Reaction Last Updated Verified No Known Drug Allergies 06/14/16 No Physical Exam Physical Exam Constitutional: Well developed, well nourished, no acute distress, non-toxic appearance. [] HENT: Normocephalic, atraumatic, oropharynx moist Eyes: Pupils equal, conjunctiva normal, no discharge. [] Neck: Normal range of motion, no tenderness, supple, no stridor. Trachea midline Cardiovascular:Heart rate regular rhythm, no murmur [] Lungs & Thorax: Bilateral breath sounds clear to auscultation. Resp. equal/ nonlabored Abdomen: Bowel sounds normal, soft, no tenderness, no masses, no pulsatile masses. [] Skin: Warm, dry, no erythema, no rash. [] Back: No tenderness, no CVA tenderness. [] Extremities: Tender to palp. mid/upper deltoid- no palp. deformity/tenderness in lt shoulder joint. No tenderness into lt clavicle- no crepitus. No cyanosis, no clubbing, ROM intact, no edema. [] Neurologic: Alert and oriented X 3, normal motor function, normal sensory function, no focal deficits noted. [] Psychologic: Affect normal, judgement normal, mood normal. [] Current Patient Data Vital Signs Vital Signs Date Time Temp Pulse Resp B/P (MAP) Pulse Ox O2 Delivery O2 Flow Rate FiO2 09/26/18 23:44 98.3 92 24 159/93 (115) 99 Room Air 98.3 EKG EKG [] Radiology/Procedures Radiology/Procedures [] Course & Med Decision Making Course & Med Decision Making Pertinent Imaging studies reviewed. (See chart for details) 0102: Discussed imaging results with Dr. Wasserman who viewed pt's xrays with no obvious displaced fxs or dislocation. This was discussed with pt and her husb. Patient is neuro and vascular intact in left upper extremity does continue to complain of the left midshaft upper arm pain. Patient has had no skin discoloration or swelling in this extremity. Patient has 2+ radial pulses with brisk capillary refill. Patient was placed in sling up on initial exam and instructions were discussed with wearing sling until symptoms improve or follow- up with with PD doctor. Will provide patient with Norflex injection while in the ER and patient had taken 2 Aleve tablets at home. Discussed plans for home discharge-provide prescription for Norflex and patient advised on use of over- the-counter Tylenol and/or ibuprofen for pain. At time of discharge patient is in no visible distress. Will provide orthopedic referral information on discharge paperwork. Dragon Disclaimer Dragon Disclaimer This electronic medical record was generated, in whole or in part, using a voice recognition dictation system. Departure Departure Impression: Primary Impression: Arm pain, left Disposition: 01 HOME, SELF-CARE Condition: STABLE Referrals: Marah RIZZO MD (PCP) OSCAR JAQUEZ II, MD orthopedic doctor Patient Instructions: Arm Sling Use-Brief, Muscle Strain Additional Instructions: Wear sling to left arm to follow-up with orthopedic doctor and less symptoms improved. Tylenol and/or ibuprofen as directed on container as needed for pain. Ice and heat compress to affected area every 3-4 hours for 20-30 minutes at a time. Scripts Orphenadrine Citrate (ORPHENADRINE CITRATE) 100 Mg Tablet.er 1 TAB PO BID PRN for PAIN, #10 TAB 0 Refills Prov: CHARITO PATEL APRN 09/27/18 CHARITO PATEL APRN Sep 27, 2018 00:18
[2018-09-27] MEDS ORDERED: ORPH100T PO (01:14)
[2018-09-27] MEDS ORDERED: ORPHENADRINE CITRATE 60 MG/2 ML VIAL. IM ONE (01:30)
--- NOTE | 2018-09-27 03:08 | RAD ---
Two-view left shoulder radiographs to include AP and lateral radiographs of the left humerus 09/27/2018 CLINICAL HISTORY: Left shoulder and arm pain. AP and transscapular digital radiographs of the left shoulder were obtained. AP and lateral digital radiographs of the left humerus were obtained. No fracture or dislocation of the left shoulder is seen. No fracture or dislocation of the left humerus is noted. No significant degenerative changes are seen. IMPRESSION: No acute osseous abnormality is seen. Electronically signed by: Sven Lind MD (09/27/2018 3:03 AM) [facility]
== END 2018-09-27 01:35 | disposition home or self-care (01) ==
LOC: ER 23:44
DX: M79.622 Pain in left upper arm (principal); F41.9 Anxiety disorder, unspecified; X50.9XXA Other and unspecified overexertion or strenuous movements or postures, initial encounter; Y93.84 Activity, sleeping; Y92.89 Other specified places as the place of occurrence of the external cause; Y99.8 Other external cause status
CPT/HCPCS: 73030; 73060; 96372; 99283; J2360

== ENCOUNTER 2018-10-01 14:35 | Emergency (ER) | payer OTHER ==
[~2018-10-01] VITALS: Ht 167.6 cm; Wt 124.7 kg
[~2018-10-01 14:35] MED LIST changes: +ORPH100T PO
[2018-10-01 15:18] VITALS: BP 167/73
[2018-10-01] MEDS ORDERED: IBUPROFEN 400 MG TABLET. PO ONE (15:30)
[2018-10-01] MEDS ORDERED: ORPHENADRINE CITRATE 60 MG/2 ML VIAL. IM ONE (15:30)
--- NOTE | 2018-10-01 15:56 | RAD ---
EXAM: Left humerus, 2 views. HISTORY: Lifting injury. COMPARISON: None. FINDINGS: 2 views of the left shoulder obtained. There is no fracture, dislocation or subluxation. IMPRESSION: No acute osseous finding. Electronically signed by: Arelis Wagner MD (10/01/2018 3:53 PM) [facility]
[2018-10-01] MEDS ORDERED: IBUP-1007 PO (16:16)
[2018-10-01] MEDS ORDERED: ORPH100T PO (16:16)
--- NOTE | 2018-10-01 16:17 | PHYS DOC ---
Past Medical History Past Medical History: No Pertinent History, Anxiety Additional Past Medical Histor: SHOULDER DISLOCATIONS Past Surgical History: Other Additional Past Surgical Histo: adenoidectomy Alcohol Use: Occasionally Drug Use: None Adult General Chief Complaint Chief Complaint: UPPER EXTREMITY INJURY HPI HPI Patient is a 33 year old female who presents with lipping of Migdalia ornaments when her mid left arm again hurting and she felt a pop. Patient states now it is hurting very badly because it's spasming. This happened today at 1400. Patient states she is not taking any medication she rates her pain a 10 out of 10 and states it does not radiate. Review of Systems Review of Systems Constitutional: Denies fever or chills [] Eyes: Denies change in visual acuity, redness, or eye pain [] HENT: Denies nasal congestion or sore throat [] Respiratory: Denies cough or shortness of breath [] Cardiovascular: No additional information not addressed in HPI [] GI: Denies abdominal pain, nausea, vomiting, bloody stools or diarrhea [] : Denies dysuria or hematuria [] Musculoskeletal: Left upper mid arm pain. Denies back pain or joint pain [] Integument: Denies rash or skin lesions [] Neurologic: Denies headache, focal weakness or sensory changes [] Endocrine: Denies polyuria or polydipsia [] All other systems were reviewed and found to be within normal limits, except as documented in this note. Current Medications Current Medications Current Medications Medications (Trade) Dose Ordered Sig/Kristen Start Time Stop Time Status Last Admin Dose Admin Ibuprofen (Motrin) 800 mg 1X ONCE 10/01/18 15:30 10/01/18 15:31 DC 10/01/18 15:35 800 MG Orphenadrine Citrate (Norflex) 60 mg 1X ONCE 10/01/18 15:30 10/01/18 15:31 DC 10/01/18 15:35 60 MG Allergies Allergies Allergies Coded Allergies Type Severity Reaction Last Updated Verified No Known Drug Allergies 06/14/16 No Physical Exam Physical Exam Constitutional: Well developed, well nourished, no acute distress, non-toxic appearance. [] HENT: Normocephalic, atraumatic, bilateral external ears normal, oropharynx moist, no oral exudates, nose normal. [] Eyes: PERRLA, EOMI, conjunctiva normal, no discharge. [] Neck: Normal range of motion, no tenderness, supple, no stridor. [] Cardiovascular:Heart rate regular rhythm, no murmur [] Lungs & Thorax: Bilateral breath sounds clear to auscultation [] Abdomen: Bowel sounds normal, soft, no tenderness, no masses, no pulsatile masses. [] Skin: Warm, dry, no erythema, no rash. [] Back: No tenderness, no CVA tenderness. [] Extremities: Left upper mid arm tenderness, no cyanosis, no clubbing, ROM intact , no edema. [] Neurologic: Alert and oriented X 3, normal motor function, normal sensory function, no focal deficits noted. [] Psychologic: Affect normal, judgement normal, mood normal. [] Current Patient Data Vital Signs Vital Signs Date Time Temp Pulse Resp B/P (MAP) Pulse Ox O2 Delivery O2 Flow Rate FiO2 10/01/18 15:18 98.0 89 16 167/73 (104) 98 Room Air 98.0 EKG EKG [] Radiology/Procedures Radiology/Procedures [] Impressions: [facility] [address] [place] [address] IMAGING REPORT Signed PATIENT: SARAY GONZALEZ ACCOUNT: [id number] : 1985 LOCATION: ER AGE: 33 SEX: F EXAM STATUS: REG ER ORD. PHYSICIAN: AMY JIMENES APRN REASON: PAIN PROCEDURE: HUMERUS LEFT EXAM: Left humerus, 2 views. HISTORY: Lifting injury. COMPARISON: None. FINDINGS: 2 views of the left shoulder obtained. There is no fracture, dislocation or subluxation. IMPRESSION: No acute osseous finding. Electronically signed by: Arelis Carney MD (10/01/2018 3:53 PM) [facility] DICTATED and SIGNED BY: ARELIS CARNEY MD DATE: 10/01/18 1551 Course & Med Decision Making Course & Med Decision Making Patient is a 33 year old female who presents with lipping of Migdalia ornaments when her mid left arm again hurting and she felt a pop. Patient states now it is hurting very badly because it's spasming. This happened today at 1400. Patient states she is not taking any medication she rates her pain a 10 out of 10 and states it does not radiate. There is no bruising, deformity or swelling in the left upper arm and she can extend the arm and then the arm but there is pain. There is pain to palpation to the upper mid arm. Radial pulse present. Patient is given Ibuprofen and Norflex in the ED. Xray shows no acute findings. Patient states she had this same thing happen last week after sleeping on the same arm but it was feeling better until this again occurred today. This is likely musculoskeletal related. Patient should follow up with her primary care doctor. Patient given a prescription for Norflex and use ibuprofen. [] Dragon Disclaimer Dragon Disclaimer This electronic medical record was generated, in whole or in part, using a voice recognition dictation system. Departure Departure Impression: Primary Impression: Arm pain, left Disposition: 01 HOME, SELF-CARE Condition: STABLE Referrals: Marah RIZZO MD (PCP) Patient Instructions: Muscle Strain Additional Instructions: FOLLOW UP WITH YOUR PRIMARY CARE PHYSICIAN. TAKE MEDICATIONS PRESCRIBED. TRY USING HEAT. Scripts Ibuprofen (IBUPROFEN) 600 Mg Tablet 600 MG PO PRN Q6HRS PRN for INFLAMMATION, #20 TAB Prov: AMY JIMENES APRN 10/01/18 Orphenadrine Citrate (ORPHENADRINE CITRATE) 100 Mg Tablet.er 1 TAB PO BID, #20 TAB Prov: AMY JIMENES APRN 10/01/18 AMY JIMENES APRN Oct 01, 2018 16:17
== END 2018-10-01 16:41 | disposition home or self-care (01) ==
LOC: ER 14:35
DX: M79.602 Pain in left arm (principal); X50.9XXA Other and unspecified overexertion or strenuous movements or postures, initial encounter; Y93.89 Activity, other specified; Y92.89 Other specified places as the place of occurrence of the external cause; Y99.8 Other external cause status
CPT/HCPCS: 73060; 96372; 99283; J2360

== ENCOUNTER 2019-05-19 23:44 | Emergency (ER) | payer OTHER ==
[~2019-05-19] VITALS: Ht 172.7 cm; Wt 124.7 kg
[~2019-05-19 23:44] MED LIST changes: +IBUP-1007 PO
[2019-05-19 23:50] VITALS: BP 131/70
--- NOTE | 2019-05-19 23:58 | PHYS DOC ---
Past Medical History Past Medical History: No Pertinent History, Anxiety Additional Past Medical Histor: SHOULDER DISLOCATIONS (JOHNSON RUTLEDGE APRN) Past Surgical History: Other Additional Past Surgical Histo: adenoidectomy (JOHNSON RUTLEDGE APRN) Alcohol Use: Occasionally Drug Use: None (JOHNSON RUTLEDGE APRN) Adult General Chief Complaint Chief Complaint: PAIN ON URINATION [facility] HPI Patient is a 34 year old female with history of anxiety who presents to the ED today complaining of dysuria and pressure when she is voiding that began 3 days ago. Patient denies any chance she is . Denies any vomiting, fever, hematuria. (JOHNSON RUTLEDGE APRN) Review of Systems Review of Systems Constitutional: Denies fever or chills [] Eyes: Denies change in visual acuity, redness, or eye pain [] HENT: Denies nasal congestion or sore throat [] Respiratory: Denies cough or shortness of breath [] Cardiovascular: No additional information not addressed in HPI [] GI: Denies abdominal pain, nausea, vomiting, bloody stools or diarrhea [] : Reports dysuria and pressure when voiding, denies hematuria [] Musculoskeletal: Denies back pain or joint pain [] Integument: Denies rash or skin lesions [] Neurologic: Denies headache, focal weakness or sensory changes [] All other systems were reviewed and found to be within normal limits, except as documented in this note. (JOHNSON RUTLEDGE APRN) Current Medications Current Medications Current Medications Medications (Trade) Dose Ordered Sig/Kristen Start Time Stop Time Status Last Admin Dose Admin Cephalexin HCl (Keflex) 500 mg 1X ONCE 05/20/19 00:30 05/20/19 00:31 DC 05/20/19 00:20 500 MG Naproxen (Naprosyn) 500 mg 1X ONCE 05/20/19 00:30 05/20/19 00:31 DC 05/20/19 00:20 500 MG Phenazopyridine HCl (Pyridium) 200 mg 1X ONCE 05/20/19 00:30 05/20/19 00:31 DC 05/20/19 00:20 200 MG (JASMEET ORTIZ MD) Allergies Allergies Allergies Coded Allergies Type Severity Reaction Last Updated Verified No Known Drug Allergies 06/14/16 No (JASMEET ORTIZ MD) Physical Exam Physical Exam Constitutional: Well developed, well nourished, no acute distress, non-toxic appearance. [] HENT: Normocephalic, atraumatic, bilateral external ears normal, oropharynx moist, no oral exudates, nose normal. [] Eyes: PERRLA, EOMI, conjunctiva normal, no discharge. [] Neck: Normal range of motion, no tenderness, supple, no stridor. [] Cardiovascular:Heart rate regular rhythm, no murmur [] Lungs & Thorax: Bilateral breath sounds clear to auscultation [] Abdomen: Bowel sounds normal, soft, no tenderness, no masses, no pulsatile masses. [] Skin: Warm, dry, no erythema, no rash. [] Back: No tenderness, no CVA tenderness. [] Extremities: No tenderness, no cyanosis, no clubbing, ROM intact, no edema. [] Neurologic: Alert and oriented X 3, normal motor function, normal sensory function, no focal deficits noted. [] Psychologic: Affect normal, judgement normal, mood normal. [] (JOHNSON RUTLEDGE APRN) Current Patient Data Vital Signs Vital Signs Date Time Temp Pulse Resp B/P (MAP) Pulse Ox O2 Delivery O2 Flow Rate FiO2 05/19/19 23:50 98.4 72 16 131/70 (90) 98 Room Air 98.4 (JASMEET ORTIZ MD) Lab Values Laboratory Tests Test 05/19/19 23:50 05/19/19 23:55 Urine Collection Type Unknown Urine Color Yellow Urine Clarity Clear Urine pH 5.5 Urine Specific [place] 1.025 Urine Protein Negative mg/dL (NEG-TRACE) Urine Glucose (UA) Negative mg/dL (NEG) Urine Ketones (Stick) Negative mg/dL (NEG) Urine Blood Trace (NEG) Urine Nitrite Negative (NEG) Urine Bilirubin Negative (NEG) Urine Urobilinogen Dipstick 1.0 mg/dL (0.2 mg/dL) Urine Leukocyte Esterase Small (NEG) Urine RBC 1-2 /HPF (0-2) Urine WBC 5-10 /HPF (0-4) Urine Squamous Epithelial Cells Many /LPF Urine Amorphous Sediment Present /HPF Urine Bacteria Moderate /HPF (0-FEW) Urine Mucus Mod /LPF POC Urine HCG, Qualitative Hcg negative (Negative) (JASMEET ORTIZ MD) Lab Values Laboratory Tests Test 05/19/19 23:50 05/19/19 23:55 Urine Collection Type Unknown Urine Color Yellow Urine Clarity Clear Urine pH 5.5 Urine Specific [place] 1.025 Urine Protein Negative mg/dL (NEG-TRACE) Urine Glucose (UA) Negative mg/dL (NEG) Urine Ketones (Stick) Negative mg/dL (NEG) Urine Blood Trace (NEG) Urine Nitrite Negative (NEG) Urine Bilirubin Negative (NEG) Urine Urobilinogen Dipstick 1.0 mg/dL (0.2 mg/dL) Urine Leukocyte Esterase Small (NEG) Urine RBC 1-2 /HPF (0-2) Urine WBC 5-10 /HPF (0-4) Urine Squamous Epithelial Cells Many /LPF Urine Amorphous Sediment Present /HPF Urine Bacteria Moderate /HPF (0-FEW) Urine Mucus Mod /LPF POC Urine HCG, Qualitative Hcg negative (Negative) (JOHNSON RUTLEDGE APRN) EKG EKG [] (JOHNSON RUTLEDGE APRN) Radiology/Procedures Radiology/Procedures [] (JOHNSON RUTLEDGE APRN) Course & Med Decision Making Course & Med Decision Making Pertinent Labs and Imaging studies reviewed. (See chart for details) This is a 34-year-old female patient presented to the ED today with dysuria and pressure when voiding for 3 days. Urine noted for small amount of leukocytes, WBCs 5-10, bacteria, though the urine appears contaminated with squamous cells epithelium, we will treat her with cephalexin. First does given in the ED. Discharged with instructions to push fluids. Follow up with primary care doctor in one week. (JOHNSON RUTLEDGE APRN) Course & Med Decision Making Staff Physician Addendum: I was working in the ER during the course of this patient's visit. I was available for consultation as needed, but I was not directly involved in the care of this patient. (JASMEET ORTIZ MD) Dragon Disclaimer Dragon Disclaimer This electronic medical record was generated, in whole or in part, using a voice recognition dictation system. (JOHNSON RUTLEDGE APRN) Departure Departure Impression: Primary Impression: Urinary tract infection Disposition: 01 HOME, SELF-CARE Condition: STABLE Referrals: Marah RIZZO MD (PCP) Follow-up in 1-2 Patient Instructions: Urinary Tract Infection Additional Instructions: You have urinary tract infection, we put you on antibiotics, ensure you complete them. Push fluids. Take Tylenol/Motrin for pain or fever. Follow-up with your doctor in 1-2 weeks. Scripts Phenazopyridine Hcl (PYRIDIUM) 100 Mg Tablet 100 MG PO TID, #9 TAB Prov: JOHNSON RUTLEDGE APRN 05/20/19 Cephalexin (CEPHALEXIN) 500 Mg Tablet 1 TAB PO BID, #14 TAB Prov: JOHNSON RUTLEDGE APRN 05/20/19 Problem Qualifiers Primary Impression: Urinary tract infection Urinary tract infection type: site unspecified Hematuria presence: without hematuria Qualified Codes: N39.0 - Urinary tract infection, site not specified JOHNSON RUTLEDGE APRN May 19, 2019 23:58 JASMEET ORTIZ MD May 20, 2019 05:54
[2019-05-20] LABS: BILIRUBIN,URINE NEGATIVE (NEG); CLARITY,URINE CLEAR; COLOR,URINE YELLOW; NITRITE,URINE NEGATIVE (NEG); PH,URINE 5.5; PROTEIN,URINE NEGATIVE (NEG-TRACE)
[2019-05-20 00:04] LABS: SQUAMOUS EPITHELIAL CELL,UR MANY /LPF
[2019-05-20 00:05] LABS: AMORPHOUS SEDIMENT,UR PRESENT /HPF; BACTERIA,URINE MODERATE /HPF (0-FEW)
[2019-05-20] MEDS ORDERED: PHEN100T82 PO (00:09)
[2019-05-20] MEDS ORDERED: CEPH500T PO (00:09)
[2019-05-20] MEDS ORDERED: CEPHALEXIN 250 MG CAPSULE. PO ONE (00:30)
[2019-05-20] MEDS ORDERED: NAPROXEN 500 MG TABLET PO ONE (00:30)
[2019-05-20] MEDS ORDERED: PHENAZOPYRIDINE 200 MG TABLET. PO ONE (00:30)
== END 2019-05-20 00:55 | disposition home or self-care (01) ==
LOC: ER 05-20 00:30
DX: N39.0 Urinary tract infection, site not specified (principal); F41.9 Anxiety disorder, unspecified
CPT/HCPCS: 81001; 81025; 87086; 87186; 99284

== ENCOUNTER → 2021-05-14 | Outpatient (CLI) | payer OTHER ==
[~2021-05-14] MED LIST changes: +CEPH500T PO; +PHEN100T82 PO
== END ==
LOC: LAB 15:31
PROVIDERS: ATTEND Internal Medicine Pulmonary Disease
DX: U07.1 COVID-19 (principal)
CPT/HCPCS: 36415; U0003; U0005